=== PATIENT | female | born 1990 | race Caucasian/White ===

== ENCOUNTER 2019-06-15 10:58 | Emergency (ER) | payer OTHER, SELFPAY ==
[2019-06-15 11:12] VITALS: BP 139/74; PULSE 79; RESP 18; O2SAT 97; BMI 27.4
[2019-06-15 11:17] VITALS: PULSE 79; RESP 16
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
--- NOTE | 2019-06-15 11:53 | PC.NURSE ---
the humid system operator Dept was called to file a report and was instructed to tell the Pt. to stop by the office on her was home to file a report. this was done
[2019-06-15 12:17] VITALS: BP 107/70; PULSE 76; RESP 16; O2SAT 99
[2019-06-15 12:30] VITALS: BP 107/70; PULSE 76; RESP 16
--- NOTE | 2019-06-17 11:00 | DCPLANNER ---
senior licensing manager had message to schedule a follow up appointment for patient with ortho. senior licensing manager called the ortho clinic, spoke with Pat, gave clinic patients information. senior licensing manager was told that patients information would be printed and reviewed. Clinic will contact pillowcase sewer and patient with appointment information.
--- NOTE | 2019-06-18 15:29 | DCPLANNER ---
Patient had an appointment scheduled for 06.17.19 with ortho. Patient did attend the appointment.
== END 2019-06-15 12:31 | disposition home or self-care (01) ==
PROVIDERS: Emergency Provider Emergency Medicine; Family Provider Nurse Practitioner Family; PCP Nurse Practitioner Family
DX: S62.635A Displaced fracture of distal phalanx of left ring finger, initial encounter for closed fracture (principal); Y04.2XXA Assault by strike against or bumped into by another person, initial encounter; Z87.891 Personal history of nicotine dependence
CPT/HCPCS: 12345; 73130; 73630; 99282; 99283

== ENCOUNTER → 2019-06-17 12:58 | Outpatient (BNVA) | payer OTHER, SELFPAY | PROVIDERS: Family Provider Nurse Practitioner Family; PCP Nurse Practitioner Family; Referring Provider Emergency Medicine; Visit Provider Specialist | DX: S62.635A Displaced fracture of distal phalanx of left ring finger, initial encounter for closed fracture (principal); X58.XXXA Exposure to other specified factors, initial encounter | CPT/HCPCS: 73140 ==

== ENCOUNTER → 2019-07-14 12:05 | Outpatient (BNVA) | payer OTHER, SELFPAY | PROVIDERS: Family Provider Nurse Practitioner Family; PCP Nurse Practitioner Family; Visit Provider Nurse Practitioner Family | DX: Z01.419 Encounter for gynecological examination (general) (routine) without abnormal findings (principal); Z78.9 Other specified health status | CPT/HCPCS: 87070; 88175 ==

== ENCOUNTER → 2020-08-26 14:20 | Outpatient (BNVA) | payer BC, SELFPAY | PROVIDERS: Family Provider Nurse Practitioner Family; PCP Nurse Practitioner Family; Visit Provider Nurse Practitioner Family | DX: J06.9 Acute upper respiratory infection, unspecified (principal); Z20.822 Contact with and (suspected) exposure to COVID-19 | CPT/HCPCS: 87635 ==

== ENCOUNTER 2022-02-28 18:01 | Outpatient (CLI) | payer BC, SELFPAY ==
[2022-02-28] VITALS (9 sets, daily range): BP systolic 103–119; BP diastolic 66–73; PULSE 81–88; RESP 17; TEMP 35.4
[2022-02-28 19:06] LABS: Nitrazine Paper, PH Negative
[2022-02-28] MEDS: acetaminophen 500 mg Tablet 1000 MG PO (19:17)
[2022-02-28 19:59] LABS: Bacteria Urine 3+ /hpf; Bilirubin Urine 1+ (Negative); Blood Urine Neg (Negative); Glucose Urine UA Norm (Normal); Ketones Urine 1+ (Negative); Leukocyte Esterase Urine Negative (Negative); Nitrate Urine Negative (Negative); Protein Urine Trace (Negative); RBC Urine 0-4 /hpf (0-2); Specific Gravity, Urine 1.025 (1.005-1.030); Squamous Epithelial Cell Urine 15-25 /hpf (0-5); Urine Appearance Hazy (CLEAR); Urine Color Yellow (Yellow); Urobilinogen Urine 1 mg/dL (Negative); WBC Urine 0-4 /hpf (0-5); pH Urine 6 (5-7)
[2022-02-28 20:00] LABS: Add Urine Culture? No
== END 2022-02-28 20:15 | disposition home or self-care (01) ==
LOC: OPOB 18:12 → OBGYN 18:14
PROVIDERS: Family Provider Nurse Practitioner Family; PCP Nurse Practitioner Family; Visit Provider Family Medicine
DX: O26.899 Other specified pregnancy related conditions, unspecified trimester (principal); Z3A.00 Weeks of gestation of pregnancy not specified; M54.9 Dorsalgia, unspecified; N89.8 Other specified noninflammatory disorders of vagina
CPT/HCPCS: 59025; 81001; 83986; 99211

== ENCOUNTER 2022-03-06 10:17 | Outpatient (CLI) | payer BC, MEDICAID, SELFPAY ==
[2022-03-06 10:35] VITALS: BP 118/67; PULSE 78; TEMP 35.8
[2022-03-06 10:41] VITALS: RESP 15
[2022-03-06 10:43] VITALS: BMI 35.1
[2022-03-06 10:51] VITALS: BP 117/73; PULSE 82
[2022-03-06 11:05] VITALS: BP 108/65; PULSE 75
[2022-03-06] MEDS: HYDROcodone-acetaminophen 5-325 mg Tablet 1 TAB PO (11:11)
== END 2022-03-06 11:38 | disposition home or self-care (01) ==
LOC: OPOB 10:20 → OBGYN 10:23
PROVIDERS: Family Provider Nurse Practitioner Family; PCP Nurse Practitioner Family; Visit Provider Family Medicine
DX: O26.899 Other specified pregnancy related conditions, unspecified trimester (principal); Z3A.00 Weeks of gestation of pregnancy not specified; R10.2 Pelvic and perineal pain; M54.50 Low back pain, unspecified
CPT/HCPCS: 59025; 99211

== ENCOUNTER 2022-04-13 23:34 | Inpatient (IN) | payer BC, MEDICAID, SELFPAY ==
[2022-04-13] VITALS (11 sets, daily range): BP systolic 100–146; BP diastolic 57–76; PULSE 76–109; RESP 15; BMI 36.6
[2022-04-13] MEDS: lactated ringers 1,000 ML 999 ML IV ×2 (18:39→20:10)
[2022-04-13] MEDS: betamethasone susp 6 mg/mL 5 mL 12 MG IM (18:45)
[2022-04-13] MEDS: NIFEdipine 10 mg Capsule 30 MG PO (18:45)
[2022-04-13] MEDS: acetaminophen 325 mg Tablet 650 MG PO (18:58)
[2022-04-13 19:27] LABS: Add Urine Culture? No; Amorphous Sediment Urine 1+ /hpf; Bacteria Urine TRACE /hpf; Bilirubin Urine Neg (Negative); Blood Urine Neg (Negative); Glucose Urine UA Norm (Normal); Ketones Urine Negative (Negative); Leukocyte Esterase Urine Negative (Negative); Nitrate Urine Negative (Negative); Protein Urine Neg (Negative); Specific Gravity, Urine 1.015 (1.005-1.030); Urine Appearance Clear (CLEAR); Urine Color Yellow (Yellow); Urobilinogen Urine Neg (Negative); pH Urine 6.5 (5-7)
[2022-04-13] MEDS: terbutaline 1 mg/mL INJ 0.25 MG SUBCUT (20:10)
--- NOTE | 2022-04-13 20:24 | PM.OBGYHP ---
Providers/Chief Complaint Admitting Physician: Dr. Valentin Weiss Primary STREET CLEANER: Dr. Valentin Weiss Primary Care Provider: Shruthi Pires Chief Complaint: CONTRACTIONS HPI STREET CLEANER History of Present Illness Juliet Novoa is a 31 year old G2, P1 female presents to labor and delivery with possible contractions at 34 weeks 6 days. Initial vaginal examination showed cervical dilation of 3 cm and there were palpable contractions. She received 1 dose of cardia and a liter of fluids without change in contraction pattern which is approximately every 3 to 5 minutes. Patient then progressed to 4 cm over the following hour. At this time the patient was expected to be in active labor and was admitted for further labor management. Patient's was on remarkable except for positive GBS in urine. Patient had an unremarkable delivery with her first at 37 weeks. Present Details : 2 Para: 1 Labs Rubella: Immune RPR: Negative GBS: Positive HBsAG: Negative Review of Systems General: Reports: 10 or more systems reviewed and unremarkable except in HPI and below Medications/Allergies Home Medications Medication Instructions Recorded Confirmed Last Taken Type prenat.vits,corbin,xtk-jftj-wjvnm 1 tab PO DAILY 02/28/22 02/28/22 02/28/22 History sertraline 25 mg tablet (Zoloft) 25 mg PO DAILY 02/28/22 02/28/22 02/28/22 History Allergies Allergy/AdvReac Type Severity Reaction Status Date / Time No Known Allergies Allergy Verified 03/06/22 11:[address] CLEANER PFSH: Medical History Anxiety and depression Encounter for cervical Pap smear with pelvic exam H/O human papillomavirus infection HSV-1 (herpes simplex virus 1) infection Well woman exam Surgical History History of conization of cervix Social History Smoking and tobacco status: former smoker Second hand smoke exposure: No Alcohol intake: never Desire information about alcohol rehabilitation?: No Counseling given: No Desire information about substance/drug rehabilitation?: No Counseling given: No Vitals/I&O/Wt Last Vital Signs Pulse 95 04/13/22 19:58 Resp 15 03/06/22 10:41 BP 128/74 04/13/22 19:58 04/13/22 04/13/22 04/13/22 06:59 14:59 22:59 Intake Total 1000 / 1000 Balance 1000 / 1000 Physical Exam Const: COMMON NORMALS: no acute distress and patient oriented x3 HENMT: COMMON NORMALS: normocephalic and moist oral mucous membranes Chest: COMMONS NORMALS: normal inspection of the chest Resp: COMMON NORMALS: normal respiratory effort and No retractions Cardio: COMMON NORMALS: regular rate and regular rhythm GI: COMMON NORMALS: Normal to inspection, nondistended, normoactive bowel sounds present Extremity: GENERAL: Yes normal exam except as noted Neuro: COMMON NORMALS: patient oriented x3 and moves all extremities Psych: COMMON NORMALS: mental status grossly normal Skin: COMMON NORMALS: no rashes or lesions noted A&P Assessment and plan (1) labor: Start routine labor management as she is actively changing. (2) 34 weeks gestation of : (3) History of GBS (group B streptococcus) UTI, currently : start GBS protocol and prophylactic abx Attestations Medical Necessity Statement*: anticipate greater than 2 midnight stay Coding Level of Care Code Acute Code for Chg Fwd Diagnoses labor O60.00 34 weeks gestation of Z3A.34 History of GBS (group B streptococcus) UTI, currently O09.899; Z87.440
[2022-04-13 20:41] LABS: Basophils # 0.1 10^3/uL (0.0-0.1); Basophils % 0.4 %; Eosinophils # 0.1 10^3/uL (0.0-0.8); Eosinophils % 0.5 %; Hematocrit 35.2 % (37.0-47.0); Hemoglobin 11.6 g/dL (11.5-15.3); Lymphocytes # 3.5 10^3/uL (0.8-4.8); Lymphocytes % 20.7 %; Mean Corpuscular Hemoglobin 28.6 pg (28.0-34.0); Mean Corpuscular Volume 86.7 fl (81-99); Monocytes # 1.2 10^3/uL (0.2-0.9); Monocytes % 7.1 %; Neutrophils # 11.73 10^3/uL (1.8-7.7); Nucleated Red Blood Cells % 0 %; Platelet Count 262 10^3/cmm (130-400); Red Blood Count 4.06 10^6/uL (4.1-5.3); Red Cell Distribution Width 13.1 % (12.1-15.1)
[2022-04-13] MEDS: ampicillin 2,000 MG in sodium chloride 0.9% (plus) 50 ML 100 MG IV (20:43)
[2022-04-14] VITALS (18 sets, daily range): BP systolic 87–118; BP diastolic 50–72; PULSE 69–86; RESP 16; TEMP 35.7–35.8
[2022-04-14] MEDS: ampicillin 1,000 MG in sodium chloride 0.9% (plus) 50 ML 100 MG IV ×2 (00:53→04:16)
[2022-04-14] MEDS: hyDROXYzine 25 mg Capsule 50 MG PO (01:45)
[2022-04-14] MEDS: acetaminophen 325 mg Tablet 650 MG PO (01:46)
--- NOTE | 2022-04-14 07:41 | PM.OBGYPN ---
CHILD CARE LEAD TEACHER Subjective Subjective: Interval history: This is a 31-year-old G2, P1 at 35 weeks gestational age that presented due to contractions. Patient did make cervical change from 3 cm to 5 cm last night but may no further change overnight. Patient is not complaining of any contractions or back pain at this time. Patient is feeling baby move. No new concerns. Labor: Station: -2 Amniotic Membrane Status: Intact Monitor Mode: External Contraction Pattern: Irregular Status: Category I Vitals/I&O/Wt Last Vital Signs Pulse 73 04/14/22 07:10 Resp 15 04/13/22 21:37 BP 103/57 04/14/22 07:10 O2 Del Method 04/13/22 23:17 04/13/22 04/14/22 04/14/22 22:59 06:59 14:59 Intake Total 1643.333 / 1643.333 187.5 / 1830.833 Balance 1643.333 / 1643.333 187.5 / 1830.833 Weight last 48 hrs Weight 99.79 kg Physical Exam Const: COMMON NORMALS: no acute distress and patient oriented x3 HENMT: COMMON NORMALS: normocephalic and moist oral mucous membranes HEAD & SCALP: normocephalic Chest: COMMONS NORMALS: normal inspection of the chest Resp: COMMON NORMALS: normal respiratory effort and No retractions Cardio: COMMON NORMALS: regular rate and regular rhythm RATE: regular rate RHYTHM: regular rhythm GI: COMMON NORMALS: Normal to inspection, nondistended, normoactive bowel sounds present Extremity: GENERAL: Yes normal exam except as noted Neuro: COMMON NORMALS: patient oriented x3 and moves all extremities Psych: COMMON NORMALS: mental status grossly normal Skin: COMMON NORMALS: no rashes or lesions noted GENERAL SKIN EXAM: no rashes or lesions noted Data 04/13/22 18:30 A&P Assessment and plan (1) labor: patient contractions have subsided, but the patient lives 1 hour away. Continue monitoring at this time. New intermittent monitoring unless contractions restart. (2) History of GBS (group B streptococcus) UTI, currently : Stop antibiotics at this time and resume if contractions restart. (3) 35 weeks gestation of : Repeat steroids tonight. Attestations Medical Necessity Statement*: Continue monitoring due to concerns for labor and logistics. Coding Level of Care Code Acute Code for Chg Fwd Diagnoses labor O60.00 History of GBS (group B streptococcus) UTI, currently O09.899; Z87.440 35 weeks gestation of Z3A.35
[2022-04-14] MEDS: betamethasone susp 6 mg/mL 5 mL 12 MG IM (19:25)
--- NOTE | 2022-04-17 16:16 | P.DS_ITS ---
Discharge Providers ETCHER PRINTED CIRCUIT BOARDS Date of Admission: 04/13/22 23:34 Date of Discharge: 04/14/22 Attending Provider at Admission: Thom Weiss MD Attending Provider at Discharge: Thom Weiss MD Primary Care Provider: Shruthi Pires-Reina Diagnoses at Discharge Discharge Diagnosis (1) labor: Status: Acute (2) History of GBS (group B streptococcus) UTI, currently : Status: Acute (3) 35 weeks gestation of : Status: Acute Reason for Visit Reason for Visit: CONTRACTIONS Hospital Course Hospital Course This is a that presented at 34w6d for contractions. she initially presented at 3cm with bloody mucousy discharge and then she progressed to 4cm. She was initially gaye every 3-5 minutes with low back pain. Seh was given IVF and procardia without improvement in contractions. Given the fact she was changing she was admitted and was given a dose of Terb to help reduce ctx. She was started betamethasone as well. She was started on GBS protocol since she did not respond to labor abortive therapy. Overnight her contractions stopped and no further cervical change occured. she was watched the following day with no contractions and FHT were reassuring. The patient was given the 2nd dose of betamethasone, and was discharged home with labor precaution instructions. Physical Exam Const: COMMON NORMALS: no acute distress and patient oriented x3 HENMT: COMMON NORMALS: normocephalic and moist oral mucous membranes HEAD & SCALP: normocephalic Chest: COMMONS NORMALS: normal inspection of the chest Resp: COMMON NORMALS: normal respiratory effort and No retractions Cardio: COMMON NORMALS: regular rate and regular rhythm RATE: regular rate RHYTHM: regular rhythm GI: COMMON NORMALS: Normal to inspection, nondistended, normoactive bowel sounds present Extremity: GENERAL: Yes normal exam except as noted Neuro: COMMON NORMALS: patient oriented x3 and moves all extremities Psych: COMMON NORMALS: mental status grossly normal Skin: COMMON NORMALS: no rashes or lesions noted GENERAL SKIN EXAM: no rashes or lesions noted Discharge Data Studies Completed and Pending Laboratory Results WBC 17.0 10^3/uL (4.0-10.0) H 04/13/22 18:30 RBC 4.06 10^6/uL (4.1-5.3) L 04/13/22 18:30 Hgb 11.6 g/dL (11.5-15.3) 04/13/22 18:30 Hct 35.2 % (37.0-47.0) L 04/13/22 18:30 MCV 86.7 fl (81-99) 04/13/22 18:30 MCH 28.6 pg (28.0-34.0) 04/13/22 18:30 MCHC 33.0 g/dL (30.0-36.0) 04/13/22 18:30 RDW 13.1 % (12.1-15.1) 04/13/22 18:30 Plt Count 262 10^3/cmm (130-400) 04/13/22 18:30 MPV 11.0 fL (7.4-10.4) H 04/13/22 18:30 Neut % (Auto) 69.0 % 04/13/22 18:30 Lymph % (Auto) 20.7 % 04/13/22 18:30 [place] % (Auto) 7.1 % 04/13/22 18:30 Eos % (Auto) 0.5 % 04/13/22 18:30 Baso % (Auto) 0.4 % 04/13/22 18:30 Neut # (Auto) 11.73 10^3/uL (1.8-7.7) H 04/13/22 18:30 Lymph # (Auto) 3.5 10^3/uL (0.8-4.8) 04/13/22 18:30 Alcorn # (Auto) 1.2 10^3/uL (0.2-0.9) H 04/13/22 18:30 Eos # (Auto) 0.1 10^3/uL (0.0-0.8) 04/13/22 18:30 Baso # (Auto) 0.1 10^3/uL (0.0-0.1) 04/13/22 18:30 Nucleated RBC % (auto) 0 % 04/13/22 18:30 Nucleated RBCs # 0.0 /100WBC 04/13/22 18:30 Urine Color Yellow (Yellow) 04/13/22 18:49 Urine Appearance Clear (CLEAR) 04/13/22 18:49 Urine pH 6.5 (5-7) 04/13/22 18:49 Ur Specific [place] 1.015 (1.005-1.030) 04/13/22 18:49 Urine Protein Neg (Negative) 04/13/22 18:49 Urine Glucose (UA) Norm (Normal) 04/13/22 18:49 Urine Ketones Negative (Negative) 04/13/22 18:49 Urine Blood Neg (Negative) 04/13/22 18:49 Urine Nitrate Negative (Negative) 04/13/22 18:49 Urine Bilirubin Neg (Negative) 04/13/22 18:49 Urine Urobilinogen Neg mg/dL (Negative) 04/13/22 18:49 Ur Leukocyte Esterase Negative (Negative) 04/13/22 18:49 Urine RBC None /hpf (0-2) 04/13/22 18:49 Urine WBC None /hpf (0-5) 04/13/22 18:49 Ur Squamous Epith Cells 5-10 /hpf (0-5) H 04/13/22 18:49 Amorphous Sediment 1+ /hpf 04/13/22 18:49 Urine Bacteria Trace /hpf (NONE) 04/13/22 18:49 Blood Type B Positive 04/13/22 18:30 Rho(D) Type Positive 04/13/22 18:30 Antibody Screen Negative 04/13/22 18:30 Vitals Last Vital Signs Temp 96.2 F L 04/14/22 20:05 Pulse 86 04/14/22 20:05 Resp 16 04/14/22 20:05 BP 111/64 04/14/22 20:05 O2 Del Method 04/14/22 19:51 Discharge Plan Discharge Patient Disposition: Home Prescriptions: Continued sertraline [Zoloft] 25 mg Tablet 25 mg PO DAILY prenat.vits,corbin,jyn-srgd-vsdmn Tablet 1 tab PO DAILY No Action buspirone 30 mg tablet 45 mg PO DAILY Discharge Orders: Discharge Order (Routine); Ordered 04/14/22 Ordered By: Thom Weiss Discharge Diet: Usual diet Discharge Activity: Limit activity as instructed and Bedrest Patient Instructions: Labor (DC), Opioid Safety, OB Undelivered Discharge Discharge Attestations ETCH[employer] BOARDS Time Spent in Discharge Care*: less than 30 min Coding Level of Care Code Acute Code for Chg Fwd Diagnoses labor O60.00 History of GBS (group B streptococcus) UTI, currently O09.899; Z87.440 35 weeks gestation of Z3A.35 Time Spent (min) 30
== END 2022-04-14 20:12 | disposition home or self-care (01) | DRG 833 ==
LOC: OPOB 04-14 07:36
PROVIDERS: Admitting Provider Family Medicine; PCP Nurse Practitioner Family; Visit Provider Family Medicine
DX: O60.03 Preterm labor without delivery, third trimester (principal); Z3A.35 35 weeks gestation of pregnancy; O99.820 Streptococcus B carrier state complicating pregnancy; O99.343 Other mental disorders complicating pregnancy, third trimester; F41.8 Other specified anxiety disorders; Z87.891 Personal history of nicotine dependence; Z87.440 Personal history of urinary (tract) infections
CPT/HCPCS: 36415; 59025; 81001; 85025; 86850; 86900; 96372; 99211; J0290; J0702; J3105; J7120

== ENCOUNTER 2022-04-16 18:13 | Outpatient (CLI) | payer BC, MEDICAID, SELFPAY ==
[2022-04-16 18:16] VITALS: BP 121/78; PULSE 71
[2022-04-16 18:25] VITALS: BMI 36.9
[2022-04-16 18:37] VITALS: BP 104/57; PULSE 78
[2022-04-16 18:57] VITALS: BP 100/65; PULSE 76
[2022-04-16 19:17] VITALS: BP 107/64; PULSE 71
[2022-04-16 19:37] VITALS: BP 109/62; PULSE 68
[2022-04-16 19:55] VITALS: BP 109/62; PULSE 68; RESP 16; TEMP 35.8
== END 2022-04-16 19:55 | disposition home or self-care (01) ==
LOC: OPOB 18:14 → OBGYN 18:15
PROVIDERS: PCP Nurse Practitioner Family; Visit Provider Family Medicine
DX: O26.899 Other specified pregnancy related conditions, unspecified trimester (principal); Z3A.00 Weeks of gestation of pregnancy not specified; M54.9 Dorsalgia, unspecified
CPT/HCPCS: 59025; 99211

== ENCOUNTER 2022-04-18 02:38 | Inpatient (IN) | payer BC, MEDICAID, SELFPAY ==
[2022-04-18] VITALS (34 sets, daily range): BP systolic 98–132; BP diastolic 55–83; PULSE 72–100; RESP 16–20; TEMP 36.1–36.2; O2SAT 93–98; BMI 36.6
[2022-04-18 02:46] LABS: Basophils % 0.2 %; Eosinophils # 0.1 10^3/uL (0.0-0.8); Eosinophils % 0.6 %; Hematocrit 36.6 % (37.0-47.0); Lymphocytes # 3.3 10^3/uL (0.8-4.8); Lymphocytes % 18.5 %; Mean Corpuscular HGB Conc 32.8 g/dL (30.0-36.0); Mean Corpuscular Hemoglobin 28.4 pg (28.0-34.0); Mean Corpuscular Volume 86.5 fl (81-99); Mean Platelet Volume 10.5 fL (7.4-10.4); Monocytes # 1.1 10^3/uL (0.2-0.9); Monocytes % 6.3 %; Neutrophils # 12.79 10^3/uL (1.8-7.7); Neutrophils % 72.6 %; Nucleated Red Blood Cells % 0 %; Platelet Count 336 10^3/cmm (130-400); Red Blood Count 4.23 10^6/uL (4.1-5.3); White Blood Count 17.6 10^3/uL (4.0-10.0)
[2022-04-18] MEDS: ampicillin 2,000 MG in sodium chloride 0.9% (plus) 50 ML 100 MG IV (03:15)
[2022-04-18] MEDS: dextrose 5%-lactated ringers 1,000 ML 125 ML IV (03:15)
[2022-04-18] MEDS: oxytocin 30 UNIT/500 ML BAG 600 UNIT IV (04:41)
[2022-04-18] MEDS: lidocaine 2% INJ 20 mL INJECTION (04:41)
--- NOTE | 2022-04-18 05:05 | P.HP_ITS ---
Providers/Chief Complaint Admitting Physician: Thom Weiss MD Primary Care Provider: Shruthi Pires-Reina Chief Complaint: Possible ROM, contractions HPI DIE CUTTING MACHINE OPERATOR History of Present Illness Juliet Novoa is a 31 year old female G2, P1 that presented at 35 weeks 4 days after having premature rupture membranes at home. Patient initially presented at 5 cm and quickly progressed to complete. Her was unremarkable except for premature contractions over the last week. Patient did have GBS in her urine at her initial visit. External labs were unremarkable. Patient was having good movement and started having contractions just prior to rupture membranes. Present Details : 2 Para: 1 Labs Rubella: Immune RPR: Unknown GBS: Positive Review of Systems General: Reports: 10 or more systems reviewed and unremarkable except in HPI and below Medications/Allergies Home Medications Medication Instructions Recorded Confirmed Last Taken Type prenat.vits,corbin,xlu-ikuo-trkzi 1 tab PO DAILY 02/28/22 04/18/22 04/17/22 11:00 History sertraline 25 mg tablet (Zoloft) 25 mg PO DAILY 02/28/22 04/18/22 04/17/22 11:00 History buspirone 30 mg tablet 45 mg PO DAILY 04/16/22 04/18/22 04/17/22 11:00 History Allergies Allergy/AdvReac Type Severity Reaction Status Date / Time No Known Allergies Allergy Verified 04/13/22 21:18 PFSH DIE CUTTING MACHINE OPERATOR PFSH: Medical History Anxiety and depression Encounter for cervical Pap smear with pelvic exam H/O human papillomavirus infection HSV-1 (herpes simplex virus 1) infection Well woman exam Surgical History History of conization of cervix Social History Smoking and tobacco status: former smoker Second hand smoke exposure: No Alcohol intake: never Desire information about alcohol rehabilitation?: No Counseling given: No Desire information about substance/drug rehabilitation?: No Counseling given: No Vitals/I&O/Wt Last Vital Signs Pulse 82 04/18/22 05:02 Resp 18 04/18/22 02:38 BP 115/58 04/18/22 05:02 O2 Del Method 04/18/22 02:30 Weight last 48 hrs Weight 99.79 kg Physical Exam Const: COMMON NORMALS: no acute distress and patient oriented x3 HENMT: COMMON NORMALS: normocephalic and moist oral mucous membranes HEAD & SCALP: normocephalic Chest: COMMONS NORMALS: normal inspection of the chest Resp: COMMON NORMALS: normal respiratory effort and No retractions Cardio: COMMON NORMALS: regular rate and regular rhythm RATE: regular rate RHYTHM: regular rhythm GI: COMMON NORMALS: Normal to inspection, nondistended, normoactive bowel sounds present Extremity: GENERAL: Yes normal exam except as noted Neuro: COMMON NORMALS: patient oriented x3 and moves all extremities Psych: COMMON NORMALS: mental status grossly normal Skin: COMMON NORMALS: no rashes or lesions noted GENERAL SKIN EXAM: no rashes or lesions noted Data 04/18/22 02:30 A&P Assessment and plan (1) 35 weeks gestation of : Patient received 2 doses of betamethasone last week. (2) History of GBS (group B streptococcus) UTI, currently : Patient was started on antibiotics on arrival (3) labor: Routine labor orders (4) Premature rupture of membranes: Attestations Medical Necessity Statement*: Anticipate greater than 2 midnight stay Coding Level of Care Code Acute Code for Chg Fwd Diagnoses 35 weeks gestation of Z3A.35 History of GBS (group B streptococcus) UTI, currently O09.899; Z87.440 labor O60.00 Premature rupture of membranes O42.90
--- NOTE | 2022-04-18 05:10 | P.PCNOB_ITS ---
Delivery Note: Date of delivery: April 18, 2022 Pre-delivery diagnoses: Late intrauterine , premature rupture of membranes Post- delivery diagnoses: Same, viable female Procedure: Spontaneous vaginal delivery Estimated blood loss (mL): 300 Pre-Delivery Course: The patient presented after having rupture membranes at home. Patient initially presented at 5 cm but quickly progressed to complete within approximately 30 minutes. Delivery: The patient delivered precipitously with nursing staff soon after complete dilation was accomplished. Physician arrived soon after and delivered placenta without incident. Evaluation of the perineum showed it intact, however the patient did have bilateral labial tears. Tears were repaired with 3-0 Vicryl after anesthetized with lidocaine. Post-Delivery Status: Stable History History History 2 Term 1 1 Miscarriages/Ectopic 0 Living Children 2 A&P Assessment and plan (1) History of GBS (group B streptococcus) UTI, currently : (2) labor: (3) Premature rupture of membranes: (4) 35 weeks gestation of : Coding Level of Care Code Acute Code for Chg Fwd Diagnoses History of GBS (group B streptococcus) UTI, currently O09.899; Z87.440 labor O60.00 Premature rupture of membranes O42.90 35 weeks gestation of Z3A.35
--- NOTE | 2022-04-18 08:22 | ANES.PREANE2 ---
Pre-Anesthetic Assessment Height/Weight: Height 1.65 m Weight 99.79 kg Pulse Resp BP O2 Del Method 84 18 115/71 04/18/22 07:49 04/18/22 05:55 04/18/22 07:49 04/18/22 02:30 Preop Diagnosis: undesired fertility Operation Date: 04/18/22 09:00 Proposed Procedures p Bilateral Tubal Ligation(Not Applicable) - Jeane Chappell MD Was Beta Radha taken within 24 hours: N/A Was Clonidine taken within 24 hours: N/A Social No alcohol and No tobacco Exam alert, oriented x 3, clear to auscultation bilaterally and regular rate & rhythm Airway Submandibular: within normal limits Cervical ROM: within normal limits Mallampati: Class II Dentition: full History/ROS No significant history except as noted and No significant complaints Pulmonary None reported CV/HEM None reported None reported Hepatic None reported GI Gastroesophageal Reflux Disease Metabolic None reported Musc/skel None reported Neuropsych Anxiety and Depression Anesthetic Plan ASA status: 2 Anesthesia: Anesthesia Evaluation and General Risk of > 500 ml blood loss (7ml/kg in children): No Medications/Allergies Home Medications Medication Instructions Recorded Confirmed Last Taken Type prenat.vits,corbin,[id number] 1 tab PO DAILY 02/28/22 04/18/22 04/17/22 11:00 History sertraline 25 mg tablet (Zoloft) 25 mg PO DAILY 02/28/22 04/18/22 04/17/22 11:00 History buspirone 30 mg tablet 45 mg PO DAILY 04/16/22 04/18/22 04/17/22 11:00 History Allergies Allergy/AdvReac Type Severity Reaction Status Date / Time No Known Allergies Allergy Verified 04/13/22 21:18 Current Medications Generic Name Dose Route Start Last Admin Trade Name Freq PRN Reason Stop Dose Admin Dextrose/Lactated Ringer's 1,000 mls @ 125 mls/hr 04/18/22 02:45 04/18/22 03:15 Dextrose 5%-Lactated Ringers IV 125 mls/hr .Q8H DEYANIRA Administration Oxytocin 30 unit in 500 mls @ 600 mls/hr 04/18/22 02:37 04/18/22 04:41 Pitocin IV 600 mls/hr .Q50M PRN 600 mls/hr After delivery of infant Administration Protocol [facility] Anesthesia Medical History Anxiety and depression Encounter for cervical Pap smear with pelvic exam H/O human papillomavirus infection HSV-1 (herpes simplex virus 1) infection Well woman exam Surgical History History of conization of cervix Social History Smoking and tobacco status: former smoker Second hand smoke exposure: No Alcohol intake: never Desire information about alcohol rehabilitation?: No Counseling given: No Desire information about substance/drug rehabilitation?: No Counseling given: No Female Reproductive History : 2 Data Anesthesia 04/18/22 02:30 Short CBC 04/18/22 Range/Units 02:30 WBC 17.6 H (4.0-10.0) 10^3/uL Hgb 12.0 (11.5-15.3) g/dL Hct 36.6 L (37.0-47.0) % MCV 86.5 (81-99) fl Plt Count 336 (130-400) 10^3/cmm Neut % (Auto) 72.6 % Neut # (Auto) 12.79 H (1.8-7.7) 10^3/uL Cardiac Studies: No Data to Display
[2022-04-18] MEDS: sodium chloride 0.9% 1,000 ML 30 ML IV (09:27)
--- NOTE | 2022-04-18 09:44 | W.PM.OPSUD ---
Surgery/Procedure H&P Update DATE OF PROCEDURE: April 18, 2022 DATE H&P PERFORMED: 04/18/22 H&P UPDATE INFORMATION: I have reviewed H&P completed within last 30 days, I have examined patient prior to procedure and Changes to prior documentation as noted here PREOP DIAGNOSIS: undesired fertility PRIMARY INDICATION FOR PROCEDURE: The patient desires permanent sterilization. I will perform a bilateral partial salpingectomy PLANNED PROCEDURE: Operation Date: 04/18/22 09:00 Proposed Procedures p Bilateral Tubal Ligation(Not Applicable) - Jeane Chappell MD
[2022-04-18] MEDS: acetaminophen 1,000 MG/100 ML PIGGYBACK 400 MG IV (11:39)
--- NOTE | 2022-04-18 11:49 | PM.OP ---
Operative Report Date of procedure: April 18, 2022 Pre-op diagnosis: Preop Diagnosis undesired fertility Post-op diagnosis: same Procedure done: partial salpingectomy Specimens removed/disposition: bilateral segment of fallopian tubes to pathology Surgeon: Jeane Chappell Anesthesia: General Estimated blood loss (mL): 10 IV fluids (mL): 800 Complications: none Condition: stable Disposition: PACU Procedure: The patient was taken to the operating room where general anesthesia was administered and found to be adequate. She was prepped and draped in the usual fashion in the dorsal supine position. An infraumbilical incision was made and carried down to the underlying layer of fascia. The fascia was nicked in the midline and the peritoneum entered sharply with the Metzenbaum scissors. The the patient was tilted to the right and the fallopian tube identified. The fallopian tube was grasped with a Crosby clamp and the clamp was walked down the tube to the fimbria. An area mid tube was grasped and elevated a clamp placed across it. The segment of tube was cut and sutured. There was excellent hemostasis. The remaining piece of fallopian tube was returned to the abdomen. The patient was then tilted to the left and using the same procedure the fallopian tube was grasped and elevated. A clamp was placed across the mesosalpinx and the segment was removed with the olmstead scissors. The base was suture ligated. The fallopian tube was returned to the abdomen. There was excellent hemostasis. The fascia was closed with 0 Vicryl. The skin was closed with 3-0 Vicryl. The patient tolerated the procedure well. Sponge lap and needle counts were correct x3. She was taken to the recovery room in stable condition.
[2022-04-18] MEDS: HYDROcodone-acetaminophen 5-325 mg Tablet PO (13:50)
--- NOTE | 2022-04-18 15:28 | ANE.PACU2 ---
Inpatient post-anesthesia follow up: Airway intact: Yes Vital signs: Temperature 96.9 F Pulse Rate 97 Respiratory Rate 18 Blood Pressure 114/64 Pulse Oximetry 97 Oxygen Delivery Me thod Room Air Oxygen Flow Rate 6 Fraction of Inspir ed Oxygen Hydration adequate: Yes Nausea and vomiting: No Pain level: 1 Mental status: Baseline
[2022-04-18] MEDS: ibuprofen 800 mg tablet PO (16:44)
[2022-04-18 17:27] LABS: Hemoglobin 11.2 g/dL (11.5-15.3); Mean Corpuscular HGB Conc 32.9 g/dL (30.0-36.0); Mean Corpuscular Hemoglobin 28.6 pg (28.0-34.0); Mean Corpuscular Volume 86.7 fl (81-99); Mean Platelet Volume 10.8 fL (7.4-10.4); Platelet Count 367 10^3/cmm (130-400); Red Blood Count 3.92 10^6/uL (4.1-5.3); Red Cell Distribution Width 13.1 % (12.1-15.1); White Blood Count 24.5 10^3/uL (4.0-10.0)
[2022-04-18] MEDS: docusate sodium 100 mg Capsule PO (20:11)
[2022-04-19] MEDS: HYDROcodone-acetaminophen 5-325 mg Tablet PO (05:17)
[2022-04-19 05:30] LABS: Hemoglobin 10.1 g/dL (11.5-15.3); Mean Corpuscular HGB Conc 32.6 g/dL (30.0-36.0); Mean Corpuscular Hemoglobin 28.5 pg (28.0-34.0); Mean Corpuscular Volume 87.3 fl (81-99); Mean Platelet Volume 10.2 fL (7.4-10.4); Platelet Count 327 10^3/cmm (130-400); Red Blood Count 3.55 10^6/uL (4.1-5.3); Red Cell Distribution Width 13.1 % (12.1-15.1); White Blood Count 17.3 10^3/uL (4.0-10.0)
[2022-04-19 09:08] VITALS: BP 98/57; PULSE 80
[2022-04-19] MEDS: sertraline 50 mg Tablet 25 MG PO (09:10)
[2022-04-19] MEDS: prenatal vitamin Capsule 1 CAP PO (09:12)
[2022-04-19] MEDS: docusate sodium 100 mg Capsule PO (09:12)
[2022-04-19] MEDS: ibuprofen 800 mg tablet PO ×2 (09:12→16:00)
[2022-04-19] MEDS: BuSPIRONE 10 mg Tablet 45 MG PO (09:13)
[2022-04-19 09:17] VITALS: RESP 15; TEMP 36.8
--- NOTE | 2022-04-19 10:29 | P.PN_ITS ---
CLERK TELEGRAPH SERVICE Subjective Subjective: Interval history: The patient reports some mild abdominal pain, otherwise doing well. Patient ambulating and voiding w/o issues. Lochia is appropriate. Labor: Station: +2 Amniotic Membrane Status: Ruptured Monitor Mode: External Contraction Pattern: Regular Post /CS: Patient comments OB post-: pain well controlled baby status: doing well and nursing well feeding status: exclusively breast feeding Vitals/I&O/Wt Last Vital Signs Temp 98.3 F 04/19/22 09:17 Pulse 80 04/19/22 09:08 Resp 15 04/19/22 09:17 BP 98/57 04/19/22 09:08 Pulse Ox 97 04/18/22 11:46 O2 Del Method 04/18/22 11:46 O2 Flow Rate 6 04/18/22 11:23 04/18/22 04/19/22 04/19/22 22:59 06:59 14:59 Intake Total 1000 / 2150 25 / 2175 Balance 1000 / 1340 25 / 1365 Weight last 48 hrs Weight 99.79 kg Physical Exam Const: COMMON NORMALS: no acute distress and patient oriented x3 HENMT: COMMON NORMALS: normocephalic and moist oral mucous membranes HEAD & SCALP: normocephalic Chest: COMMONS NORMALS: normal inspection of the chest Resp: COMMON NORMALS: normal respiratory effort and No retractions Cardio: COMMON NORMALS: regular rate and regular rhythm RATE: regular rate RHYTHM: regular rhythm GI: COMMON NORMALS: Normal to inspection, nondistended, normoactive bowel sounds present Extremity: GENERAL: Yes normal exam except as noted Neuro: COMMON NORMALS: patient oriented x3 and moves all extremities Psych: COMMON NORMALS: mental status grossly normal Skin: COMMON NORMALS: no rashes or lesions noted GENERAL SKIN EXAM: no rashes or lesions noted Data 04/19/22 05:15 A&P Assessment and plan (1) care following vaginal delivery: Patient recovering well from delivery. continue routine PP care. Attestations Medical Necessity Statement*: anticipate discharge tomorrow. Coding Level of Care Code Acute Code for Chg Fwd Diagnoses care following vaginal delivery Z39.2
[2022-04-19 15:59] VITALS: BP 114/65; PULSE 100
[2022-04-19 16:07] VITALS: BP 114/65; RESP 16; TEMP 36.9
[2022-04-19 22:55] VITALS: BP 121/56; PULSE 84
[2022-04-20] MEDS: HYDROcodone-acetaminophen 5-325 mg Tablet PO (01:22)
[2022-04-20 05:04] VITALS: BP 100/58; PULSE 82
[2022-04-20 05:07] VITALS: RESP 16
--- NOTE | 2022-04-20 07:28 | P.DS_ITS ---
Discharge Providers MONOTYPER Date of Admission: 04/18/22 02:38 Date of Discharge: 04/20/22 Attending Provider at Admission: Thom Weiss MD Attending Provider at Discharge: Thom Weiss MD Primary Care Provider: Shruthi Pires-Reina Diagnoses at Discharge Discharge Diagnosis (1) care following vaginal delivery: Details from hospital stay: unremarkable post care. Status: Acute Reason for Visit Reason for Visit: Possible ROM, contractions Hospital Course Hospital Course This is 31 y/o that presented PPROM. She delivered precipitously soon after. No complications during delivery. Post care was unremarkable. Patient under went tubal ligation without issue. No complications from surgery. Information Peripartum Data: Infant Delivery Method: Vaginal Laceration description: Labial Physical Exam Const: COMMON NORMALS: no acute distress and patient oriented x3 HENMT: COMMON NORMALS: normocephalic and moist oral mucous membranes HEAD & SCALP: normocephalic Chest: COMMONS NORMALS: normal inspection of the chest Resp: COMMON NORMALS: normal respiratory effort and No retractions Cardio: COMMON NORMALS: regular rate and regular rhythm RATE: regular rate RHYTHM: regular rhythm GI: COMMON NORMALS: Normal to inspection, nondistended, normoactive bowel sounds present Extremity: GENERAL: Yes normal exam except as noted Neuro: COMMON NORMALS: patient oriented x3 and moves all extremities Psych: COMMON NORMALS: mental status grossly normal Skin: COMMON NORMALS: no rashes or lesions noted GENERAL SKIN EXAM: no rashes or lesions noted WOUNDS: Yes surgical site (CDI) Details: no odor History History History 2 Term 1 1 Miscarriages/Ectopic 0 Living Children 2 Discharge Data Studies Completed and Pending Completed Studies During Hospitalization Category Date Time Status Pathology: Surgical [PTH] Routine Pth 04/18/22 11:05 Completed Laboratory Results WBC 17.3 10^3/uL (4.0-10.0) H 04/19/22 05:15 RBC 3.55 10^6/uL (4.1-5.3) L 04/19/22 05:15 Hgb 10.1 g/dL (11.5-15.3) L 04/19/22 05:15 Hct 31.0 % (37.0-47.0) L 04/19/22 05:15 MCV 87.3 fl (81-99) 04/19/22 05:15 MCH 28.5 pg (28.0-34.0) 04/19/22 05:15 MCHC 32.6 g/dL (30.0-36.0) 04/19/22 05:15 RDW 13.1 % (12.1-15.1) 04/19/22 05:15 Plt Count 327 10^3/cmm (130-400) 04/19/22 05:15 MPV 10.2 fL (7.4-10.4) 04/19/22 05:15 Neut % (Auto) 72.6 % 04/18/22 02:30 Lymph % (Auto) 18.5 % 04/18/22 02:30 [place] % (Auto) 6.3 % 04/18/22 02:30 Eos % (Auto) 0.6 % 04/18/22 02:30 Baso % (Auto) 0.2 % 04/18/22 02:30 Neut # (Auto) 12.79 10^3/uL (1.8-7.7) H 04/18/22 02:30 Lymph # (Auto) 3.3 10^3/uL (0.8-4.8) 04/18/22 02:30 [place] # (Auto) 1.1 10^3/uL (0.2-0.9) H 04/18/22 02:30 Eos # (Auto) 0.1 10^3/uL (0.0-0.8) 04/18/22 02:30 Baso # (Auto) 0.0 10^3/uL (0.0-0.1) 04/18/22 02:30 Nucleated RBC % (auto) 0 % 04/18/22 02:30 Nucleated RBCs # 0.0 /100WBC 04/18/22 02:30 Vitals Last Vital Signs Temp 98.4 F 04/19/22 16:07 Pulse 82 04/20/22 05:04 Resp 16 04/20/22 05:07 BP 100/58 04/20/22 05:04 Pulse Ox 97 04/18/22 11:46 O2 Del Method 04/18/22 11:46 O2 Flow Rate 6 04/18/22 11:23 Discharge Plan Discharge Patient Disposition: Home Condition: Stable Prescriptions: Continued buspirone 30 mg tablet 45 mg PO DAILY sertraline [Zoloft] 25 mg Tablet 25 mg PO DAILY prenat.vits,corbin,[id number] Tablet 1 tab PO DAILY Discharge Orders: Discharge Order (Routine); Ordered 04/20/22 Ordered By: Thom Weiss Referrals: Thom eWiss MD [Physician] - 6 Weeks Discharge Diet: Usual diet Discharge Activity: Limit activity as instructed Patient Instructions: Depression (DC), Preeclampsia and Eclampsia After Delivery (GEN), Hemorrhage (DC), OB Discharge Report, OB Food/Drug Interaction Guide, OB Care at Home, Opioid Safety, Abnormal Bleeding Discharge Attestations MONOTYPER Time Spent in Discharge Care*: less than 30 min Coding Level of Care Code Acute Code for Chg Fwd Diagnoses care following vaginal delivery Z39.2
[2022-04-20] MEDS: docusate sodium 100 mg Capsule PO (11:04)
[2022-04-20] MEDS: sertraline 50 mg Tablet 25 MG PO (11:04)
[2022-04-20] MEDS: prenatal vitamin Capsule 1 CAP PO (11:04)
[2022-04-20] MEDS: ibuprofen 800 mg tablet PO (11:04)
[2022-04-20] MEDS: BuSPIRONE 10 mg Tablet 45 MG PO (11:05)
[2022-04-20 11:09] VITALS: BP 112/65; PULSE 86
[2022-04-20 11:11] VITALS: RESP 16; TEMP 36.9
[2022-04-20 13:00] VITALS: RESP 16; TEMP 36.9
== END 2022-04-20 12:37 | disposition home or self-care (01) | DRG 798 ==
LOC: OPOB 02:38 → OBGYN 02:38
PROVIDERS: Obstetrics & Gynecology; Admitting Provider Family Medicine; PCP Nurse Practitioner Family; Visit Provider Family Medicine
PROC: 0UB70ZZ Excision of Bilateral Fallopian Tubes, Open Approach (ICD-10-PCS; CPT 58605; principal; 2022-04-18 09:00)
DX: O42.013 Preterm premature rupture of membranes, onset of labor within 24 hours of rupture, third trimester (principal); Z37.0 Single live birth; O62.3 Precipitate labor; O99.344 Other mental disorders complicating childbirth; F32.A Depression, unspecified; F41.9 Anxiety disorder, unspecified; O70.0 First degree perineal laceration during delivery; Z86.19 Personal history of other infectious and parasitic diseases; Z87.440 Personal history of urinary (tract) infections; Z87.891 Personal history of nicotine dependence; Z3A.35 35 weeks gestation of pregnancy; Z30.2 Encounter for sterilization
CPT/HCPCS: 36415; 59409; 85025; 85027; 88302; 96374; 98960; J0131; J0290; J1100; J2370; J2405; J2590; J2704; J3010; J3490; J7030; J7121